=== PATIENT | male | born 1990 | race American Indian/Alaskan Native ===

== ENCOUNTER 2019-03-21 20:48 | Emergency (ER) | payer SELFPAY ==
--- NOTE | 2019-03-21 21:01 | Event Note ---
ED Screening Note Date of service: 03/21/19 Time: 00:00 ED Screening Note: This is a 28 y.o. M. that presents to the ER with low back pain radiating to RLE x 3-4 weeks. Reports pain for 1 year but aggravated over 3-4 weeks. Current smoker. This initial assessment/diagnostic orders/clinical plan/treatment(s) is/are subject to change based on patients health status, clinical progression and re- assessment by fellow clinical providers in the ED. Further treatment and workup at subsequent clinical providers discretion. Patient/guardian urged not to elope from the ED as their condition may be serious if not clinically assessed and managed. Initial orders include: XR L-spine
[2019-03-21] MEDS ORDERED: TORADOL IM ONE (21:47)
[2019-03-21] MEDS ORDERED: TYLENOL PO ONE (21:47)
[2019-03-21] MEDS ORDERED: DELTASONE PO ONE (21:47)
--- NOTE | 2019-03-21 21:52 | Emergency Department Report ---
ED Extremity Problem HPI - General Chief complaint: Extremity Injury, Lower Stated complaint: RT LEG PAIN Time Seen by Provider: 03/21/19 20:57 Source: patient Mode of arrival: Ambulatory Limitations: No Limitations - History of Present Illness Initial comments: Patient is a 28-year-old -[place] male with a history of chronic nontraumatic right hip and presents to the ED with complaint of acute exacerbation of his chronic right hip pain that radiates to the right thigh for the last 1 week, worse in the last 2 days. Patient denies fall, traumatic injury, numbness and tingling or weakness of right leg, low back pain, dizziness, chest pain, shortness of breath, leg swelling, hematuria, dysuria, testicular pain, chest pain or shortness of breath or abdominal pain, fever and chills, heavy lifting or motion vomiting. MD Complaint: extremity pain (right hip and leg), joint paint (right hip pain) -: Gradual, year(s) (1) Location: right, lower extremity (hip) History of Same: Yes -: Yes myalgia, Yes arthralgia, No fever, No associated dyspnea, No associated chest pain Radiation: distal Severity scale (0 -10): 7 Quality: aching, sharp Consistency: intermittent Improves with: nothing Worsens with: weight bearing, walking, exertion, palpation Associated Symptoms: denies other symptoms, arthralgias. denies: chest pain, shortness of breath, fever, myalgias, rash - Related Data Previous Rx's Medication Instructions Recorded Last Taken Type Naproxen [Naprosyn TAB] 500 mg PO Q12H PRN #20 tablet 03/21/19 Unknown Rx tiZANidine [Zanaflex 4mg TAB] 4 mg PO Q8H PRN #15 tablet 03/21/19 Unknown Rx traMADol [Ultram] 50 mg PO Q6HR PRN #12 tablet 03/21/19 Unknown Rx Allergies Allergy/AdvReac Type Severity Reaction Status Date / Time No Known Allergies Allergy Verified 03/21/19 21:01 ED Review of Systems ROS: Stated complaint: RT LEG PAIN Other details as noted in HPI Constitutional: denies: chills, fever Eyes: denies: eye pain, eye discharge, vision change ENT: denies: ear pain, throat pain Respiratory: denies: cough, shortness of breath, wheezing Cardiovascular: denies: chest pain, palpitations Endocrine: no symptoms reported Gastrointestinal: denies: abdominal pain, nausea, diarrhea Genitourinary: denies: urgency, dysuria Musculoskeletal: arthralgia (right hip), myalgia. denies: back pain, joint swelling Skin: denies: rash, lesions Neurological: denies: headache, weakness, paresthesias Psychiatric: denies: anxiety, depression Hematological/Lymphatic: denies: easy bleeding, easy bruising ED Past Medical Hx - Past Medical History Previous Medical History?: No - Surgical History Past Surgical History?: No - Social History Smoking Status: Current Every Day Smoker Substance Use Type: None - Medications Home Medications: Home Medications Medication Instructions Recorded Confirmed Last Taken Type Naproxen [Naprosyn TAB] 500 mg PO Q12H PRN #20 tablet 03/21/19 Unknown Rx tiZANidine [Zanaflex 4mg TAB] 4 mg PO Q8H PRN #15 tablet 03/21/19 Unknown Rx traMADol [Ultram] 50 mg PO Q6HR PRN #12 tablet 03/21/19 Unknown Rx ED Physical Exam - General Limitations: No Limitations General appearance: alert, in no apparent distress - Head Head exam: Present: atraumatic, normocephalic, normal inspection - Eye Eye exam: Present: normal appearance, PERRL, EOMI Pupils: Present: normal accommodation - ENT ENT exam: Present: normal exam, normal orophraynx, mucous membranes moist, TM's normal bilaterally, normal external ear exam - Neck Neck exam: Present: normal inspection, full ROM. Absent: tenderness - Respiratory Respiratory exam: Present: normal lung sounds bilaterally. Absent: respiratory distress, wheezes, rales, rhonchi, chest wall tenderness, accessory muscle use, decreased breath sounds - Cardiovascular Cardiovascular Exam: Present: regular rate, normal rhythm, normal heart sounds. Absent: systolic murmur, diastolic murmur, rubs, gallop - GI/Abdominal GI/Abdominal exam: Present: soft, normal bowel sounds. Absent: tenderness, guarding, rebound, hyperactive bowel sounds, organomegaly, bruit - Rectal Rectal exam: Present: deferred - Extremities Exam Extremities exam: Present: normal inspection, tenderness (right hip tenderness), normal capillary refill. Absent: full ROM (decreased limited ROM due to pain), pedal edema, calf tenderness - Back Exam Back exam: Present: normal inspection, full ROM. Absent: tenderness, CVA tenderness (L), muscle spasm, paraspinal tenderness, vertebral tenderness - Neurological Exam Neurological exam: Present: alert, oriented X3, CN II-XII intact, normal gait, reflexes normal - Psychiatric Psychiatric exam: Present: normal affect, normal mood - Skin Skin exam: Present: warm, dry, intact, normal color. Absent: rash ED Course Vital Signs 03/21/19 20:59 Temperature 98.0 F Pulse Rate 67 Respiratory 12 Rate Blood Pressure 119/77 O2 Sat by Pulse 99 Oximetry - Reevaluation(s) Reevaluation #1: 03/21/19 22:17 Patient is a 28-year-old male with a history of chronic right hip and who presented to the ED with acute exacerbation of the right hip pain for 1 week. In the ED, patient is alert and oriented 3 and is not in distress. Patient was treated for pain in the ED. Patient pain is likely due to bursitis, tendinitis or degenerative joint disease given the chronicity of the symptoms. Patient was sent home on pain medications and advised to follow-up with his primary care physician 7-10 days for reevaluation or return to the ED immediately if symptoms get worse. ED Medical Decision Making - Radiology Data Radiology results: report reviewed, image reviewed L-spine x-ray shows no acute fractures or sublaxations - Medical Decision Making Patient is a 28-year-old male with a history of chronic right hip and who presented to the ED with acute exacerbation of the right hip pain for 1 week. In the ED, patient is alert and oriented 3 and is not in distress. Patient was treated for pain in the ED. Patient pain is likely due to bursitis, tendinitis or degenerative joint disease given the chronicity of the symptoms. Patient was sent home on pain medications and advised to follow-up with his primary care physician 7-10 days for reevaluation or return to the ED immediately if symptoms get worse. - Differential Diagnosis Right hip bursitis; Chronic hip pain, DJD of right hip, Muscle strain Critical care attestation.: If time is entered above; I have spent that time in minutes in the direct care of this critically ill patient, excluding procedure time. ED Disposition Clinical Impression: Chronic right hip pain Bursitis of right hip Qualifiers: Hip bursitis location: unspecified Qualified Code(s): M70.71 - Other bursitis of hip, right hip Disposition: TO HOME OR SELFCARE Is pt being admited?: No Does the pt Need Aspirin: No Condition: Stable Instructions: Hip Bursitis (ED), Tendinitis (ED), Musculoskeletal Pain (ED), C hronic Pain (ED) Additional Instructions: Take medications with food, drink plenty of fluids and follow up with your primary care physician in 7-10 days for reevaluation. Return to the emergency department immediately for reevaluation if symptoms get worse. Prescriptions: Naproxen [Naprosyn TAB] 500 mg PO Q12H PRN #20 tablet PRN Reason: Pain , Severe (7-10) traMADol [Ultram] 50 mg PO Q6HR PRN #12 tablet PRN Reason: Pain tiZANidine [Zanaflex 4mg TAB] 4 mg PO Q8H PRN #15 tablet PRN Reason: Spasms Referrals: [facility] [Outside] - 3-5 Days Time of Disposition: 21:50 Print Language: BURMESE
--- NOTE | 2019-03-21 21:56 | XRay Report ---
LUMBAR SPINE 3 VIEWS INDICATION / CLINICAL INFORMATION: MAIN: low back pain for a year/has gotten worst past 3 weeks. COMPARISON: None available. FINDINGS: VERTEBRAE: No acute fracture. No significant malalignment. DISC SPACES / FACET JOINTS:No significant abnormality. PARASPINAL SOFT TISSUES:No significant abnormality. ADDITIONAL FINDINGS: None. Signer Name: John Walker MD Signed: 03/21/2019 9:52 PM Workstation Name: [id number]
[2019-03-22 00:16] VITALS: BP 118/78
== END 2019-03-22 00:16 | disposition home or self-care (01) ==
LOC: ED 20:48
DX: M70.71 Other bursitis of hip, right hip (principal); G89.29 Other chronic pain; F17.200 Nicotine dependence, unspecified, uncomplicated
CPT/HCPCS: 72100; 96372; 99283; J1885; J7512